=== PATIENT | female | born 1970 | race Caucasian/White ===

== ENCOUNTER 2021-12-15 19:53 | Emergency (ER) | payer OTHER ==
[2021-12-15 20:01] VITALS: BP 124/85; PULSE 83; TEMP 97.9; BMI 28.2
[2021-12-15] MEDS ORDERED: DIPHTH,PERTUSS(ACELL),TET 0.5 ML DISP.SYRIN IM ONE ×2 (21:01→22:31)
== END 2021-12-15 22:34 | disposition home or self-care (01) ==
LOC: JER 19:53
DX: S80.811A Abrasion, right lower leg, initial encounter (principal); W19.XXXA Unspecified fall, initial encounter
CPT/HCPCS: 73562-TC-RT-FY; 73590-TC-RT-FY; 99283-25